=== PATIENT | male | born 1970 | race Caucasian/White ===

== ENCOUNTER → 2017-05-28 | Outpatient (CLI) | payer MEDICARE, MEDICAID ==
[~2017-05-28] MED LIST: BACL-141 PO; MIDODRINE PO; ONDA4TAB5 PO; PANT40TA4 PO
== END | disposition home or self-care (01) ==
LOC: RAD 09:09
PROVIDERS: ATTEND Surgery
DX: Z43.2 Encounter for attention to ileostomy (principal)
CPT/HCPCS: 74270